=== PATIENT | female | born 1955 | race Hispanic/Latino ===

== ENCOUNTER → 2021-04-10 | Outpatient (CLI) | payer MEDICARE | LOC: MAMMO 12:33 | PROVIDERS: ATTEND Family Medicine | DX: Z12.31 Encounter for screening mammogram for malignant neoplasm of breast (principal); Z13.820 Encounter for screening for osteoporosis | CPT/HCPCS: 77067; 77080 ==

== ENCOUNTER → 2022-05-20 | Outpatient (CLI) | payer MEDICARE | LOC: RAD 08:49 | PROVIDERS: ATTEND Family Medicine | DX: Z12.31 Encounter for screening mammogram for malignant neoplasm of breast (principal) | CPT/HCPCS: 77067 ==

== ENCOUNTER 2023-03-09 18:41 | Inpatient (IN) | payer MEDICARE ==
[~2023-03-09] VITALS: Ht 160 cm; Wt 104.3 kg
[2023-03-09] MEDS ORDERED: SODIUM CHLORIDE 0.9% 1000ML 1,000 ML IV STA (19:08)
[2023-03-09] MEDS ORDERED: ONDANSETRON HCL INJ 2MG/ML 2ML 2 MG/ML VIAL IV PRN (19:15)
[2023-03-09] MEDS ORDERED: DICYCLOMINE HCL 20 MG/2 ML VIAL IM ONE (19:15)
[2023-03-09 20:04] LABS: BASOPHILS # (AUTO) 0.1 (0.0-0.1); BASOPHILS % 0.7 % (0.0-1.0); EOSINOPHILS % 0.3 % (0.0-6.0); HEMATOCRIT 47.9 % (34.2-44.1); HEMOGLOBIN 15.8 g/dL (12.0-16.0); LYMPHOCYTES # (AUTO) 0.9 (1.0-3.2); LYMPHOCYTES % 6.3 % (18.0-39.1); MEAN CORPUSCULAR HEMOGLOBIN 30.7 pg (28-32); MEAN CORPUSCULAR VOLUME 93.2 fL (81-99); MONOCYTES # (AUTO) 0.3 (0.2-0.8); MONOCYTES % 1.8 % (4.4-11.3); NEUTROPHILS # (AUTO) 12.8 (2.1-6.9); NEUTROPHILS % 89.8 % (38.7-80.0); PLATELET COUNT 277 x10e3/uL (140-360); RED BLOOD COUNT 5.14 x10e6/uL (3.6-5.1); RED CELL DISTRIBUTION WIDTH 12.4 % (11.7-14.4); WHITE BLOOD COUNT 14.24 x10e3/uL (4.8-10.8)
[2023-03-09 20:07] LABS: BILIRUBIN,URINE NEGATIVE (NEGATIVE); CLARITY,URINE SL CLOUDY (CLEAR); COLOR,URINE YELLOW (YELLOW); GLUCOSE, URINE 1+ (NEGATIVE); KETONES,URINE 2+ (NEGATIVE); LEUKOCYTE ESTERASE ,URINE NEGATIVE (NEGATIVE); NITRITE,URINE NEGATIVE (NEGATIVE); PH,URINE 7 (5 - 7); PROTEIN,URINE DIPSTICK 1+ (NEGATIVE); URINE UROBILINOGEN 0.2 mg/dL (0.2 - 1)
[2023-03-09 20:18] LABS: BACTERIA,URINE RARE /HPF; EPITHELIAL CELLS,URINE FEW /LPF; RBC,URINE 0-5 /HPF (0-5); WBC,URINE (MAN) 0-5 /HPF (0-5)
[2023-03-09 20:20] LABS: ALBUMIN 4.3 g/dL (3.5-5.0); ANION GAP 20.3 mmol/L (8-16); BILIRUBIN,TOTAL 1.5 mg/dL (0.2-1.2); CALCIUM 9.9 mg/dL (8.4-10.2); CREATININE, SERUM 0.92 mg/dL (0.57-1.11); TOTAL PROTEIN 8.4 g/dL (6.5-8.1)
[2023-03-09 20:21] LABS: POTASSIUM 3.3 mmol/L (3.5-5.1)
[2023-03-09 20:28] LABS: INFLUENZAE A&B ANTIGEN (RAPID) NEGATIVE (NEGATIVE); RESPIRATORY SYNC. VIRUS NEGATIVE (NEGATIVE)
[2023-03-09] MEDS ORDERED: IOPAMIDOL 370 MG/ML 100 ML INFUS..BTL INJ ONE (20:29)
[2023-03-09] MEDS ORDERED: FUROSEMIDE INJ 10 MG/ML 4 ML VIAL IV SCH (22:00)
[2023-03-09] MEDS ORDERED: ASPIRIN 81 MG CHEW TAB PO ONE (22:00)
[2023-03-09 22:05] VITALS: PULSE 108; RESP 22; O2SAT 97
[2023-03-09] MEDS ORDERED: AMLODIPINE-BEN1 EAC5 PO (22:28)
[2023-03-09] MEDS ORDERED: LOSARTAN POTASS25 MG PO (22:28)
[2023-03-09] MEDS ORDERED: METFORMIN HCL500 MG PO (22:28)
[2023-03-09] MEDS ORDERED: VENLAFAXINE HCL75 M2 PO (22:28)
[2023-03-09] MEDS ORDERED: POTASSIUM CHLO10 ME1 PO (22:28)
[2023-03-09] MEDS ORDERED: METOPROLOL TARTRATE 25 MG TAB PO ONE (22:30)
[2023-03-09] MEDS ORDERED: MELATONIN 5 MG TABLET PO PRN (22:45)
[2023-03-09] MEDS ORDERED: METOPROLOL TARTRATE INJ 1 MG/ML VIAL IV ONE (22:45)
[2023-03-09] MEDS ORDERED: FAMOTIDINE 20 MG TAB PO PRN (22:45)
[2023-03-09] MEDS ORDERED: ACETAMINOPHEN 325 MG TAB PO PRN (22:45)
[2023-03-09] MEDS: HYDRALAZINE HCL 20 MG/ML VIAL IV PRN (23:51)
[2023-03-10] MEDS ORDERED: NICARDIPINE 20MG/200ML PREMIX 200 ML IV SCH (01:15)
[2023-03-10] MEDS ORDERED: POTASSIUM CHLORIDE 20 MEQ TAB CR PO STA (02:52)
[2023-03-10] MEDS ORDERED: DOCUSATE SODIUM 100 MG CAP PO PRN (03:00)
[2023-03-10] MEDS ORDERED: ALBUTEROL SULF 0.083% NEB SOLN 3 ML NEB NEB PRN (03:00)
[2023-03-10] MEDS ORDERED: GUAIFENESIN/DEXTROMETHORPHAN LIQD 5 ML UDC PO PRN (03:00)
[2023-03-10] MEDS ORDERED: MAGNESIUM/ALUMINUM/SIMETHICONE 30 ML UDC PO PRN (03:15)
[2023-03-10] MEDS ORDERED: DEXTROSE 50% SYRINGE 50 ML IV PRN (03:15)
[2023-03-10 03:51] LABS: TROPONIN I 0.038 ng/mL (0-0.300)
[2023-03-10 05:29] LABS: AMPHETAMINES SCREEN,URINE NEGATIVE (NEGATIVE); BENZODIAZEPINES SCREEN,URINE NEGATIVE (NEGATIVE); CANNABINOIDS SCREEN,URINE NEGATIVE (NEGATIVE); METHADONE SCREEN, URINE NEGATIVE (NEGATIVE); OPIATES SCREEN,URINE NEGATIVE (NEGATIVE); PHENCYCLIDINE SCREEN,URINE NEGATIVE (NEGATIVE)
[2023-03-10 06:22] LABS: BASOPHILS % 0.2 % (0.0-1.0); HEMATOCRIT 47.9 % (34.2-44.1); HEMOGLOBIN 16.2 g/dL (12.0-16.0); LYMPHOCYTES # (AUTO) 0.8 (1.0-3.2); LYMPHOCYTES % 5.1 % (18.0-39.1); MEAN CORPUSCULAR HEMOGLOBIN 31.2 pg (28-32); MEAN CORPUSCULAR HGB CONC 33.8 g/dL (31-35); MEAN CORPUSCULAR VOLUME 92.3 fL (81-99); MONOCYTES # (AUTO) 0.4 (0.2-0.8); MONOCYTES % 2.7 % (4.4-11.3); NEUTROPHILS # (AUTO) 14.7 (2.1-6.9); NEUTROPHILS % 91.5 % (38.7-80.0); PLATELET COUNT 275 x10e3/uL (140-360); RED BLOOD COUNT 5.19 x10e6/uL (3.6-5.1); RED CELL DISTRIBUTION WIDTH 12.6 % (11.7-14.4); WHITE BLOOD COUNT 16.07 x10e3/uL (4.8-10.8)
[2023-03-10 06:45] LABS: ALBUMIN 4.6 g/dL (3.5-5.0); ALBUMIN/GLOBULIN RATIO 1.1 (0.8-2.0); BILIRUBIN,TOTAL 1.5 mg/dL (0.2-1.2); CREATININE, SERUM 0.94 mg/dL (0.57-1.11); TOTAL PROTEIN 8.9 g/dL (6.5-8.1)
[2023-03-10 06:58] LABS: MAGNESIUM 1.7 MG/DL (1.3-2.1); PHOSPHORUS 2.8 MG/DL (2.3-4.7)
[2023-03-10] MEDS ORDERED: POTASSIUM CHLORIDE 20 MEQ TAB CR PO ONE (07:07)
[2023-03-10] MEDS: INSULIN REGULAR, HUMAN 100 UNIT/1 ML SQ SCH ×4 (07:30→21:00)
[2023-03-10 07:33] LABS: TROPONIN I 0.03 ng/mL (0-0.300)
[2023-03-10 07:37] VITALS: PULSE 96; RESP 18; O2SAT 98
[2023-03-10] MEDS: BENAZEPRIL HCL 10 MG TAB PO SCH (09:00)
[2023-03-10 11:02] LABS: FOLATE 11.1 ng/mL (7.0-15.4)
[2023-03-10] MEDS: CHLORDIAZEPOXIDE HCL 25 MG CAP PO SCH ×3 (11:43→18:40)
[2023-03-10] MEDS: FAMOTIDINE 20 MG TAB PO SCH ×2 (11:43→16:43)
[2023-03-10] MEDS: FOLIC ACID 1 MG TAB PO SCH (11:43)
[2023-03-10] MEDS: THIAMINE HCL 100 MG TAB PO SCH (11:43)
[2023-03-10] MEDS: MULTIVITAMINS/MINERALS TAB PO SCH (11:44)
[2023-03-10] MEDS: AMLODIPINE BESYLATE 10 MG TAB PO SCH (11:44)
[2023-03-10] MEDS ORDERED: CHLORDIAZEPOXIDE HCL 25 MG CAP PO SCH ×2 (14:00→21:00)
[2023-03-10 16:20] VITALS: BP 151/90; PULSE 100; RESP 20; TEMP 98.5; O2SAT 100
[2023-03-10] MEDS: VENLAFAXINE HCL 75 MG CAPCR PO SCH (16:43)
[2023-03-10] MEDS ORDERED: FUROSEMIDE INJ 10 MG/ML 4 ML VIAL IV SCH (17:00)
[2023-03-10 17:35] VITALS: BP 151/90; PULSE 100; RESP 20; TEMP 98.5; O2SAT 100
[2023-03-10] MEDS ORDERED: ATENOLOL50 MG PO (18:53)
[2023-03-10 19:38] LABS: TROPONIN I 0.07 ng/mL (0-0.300)
[2023-03-10 20:00] VITALS: BP 130/60; PULSE 93; RESP 20; TEMP 98.5; O2SAT 99
[2023-03-11] VITALS (9 sets, daily range): BP systolic 121–179; BP diastolic 58–103; PULSE 94–107; RESP 14–20; TEMP 97.8–98.7; O2SAT 97–100
[2023-03-11 05:13] LABS: BASOPHILS # (AUTO) 0.1 (0.0-0.1); BASOPHILS % 0.5 % (0.0-1.0); EOSINOPHILS # (AUTO) 0.1 (0.0-0.4); EOSINOPHILS % 0.5 % (0.0-6.0); HEMOGLOBIN 16.4 g/dL (12.0-16.0); LYMPHOCYTES # (AUTO) 2.2 (1.0-3.2); MEAN CORPUSCULAR HEMOGLOBIN 30.5 pg (28-32); MEAN CORPUSCULAR HGB CONC 32.8 g/dL (31-35); MEAN CORPUSCULAR VOLUME 93.1 fL (81-99); MONOCYTES # (AUTO) 1.6 (0.2-0.8); MONOCYTES % 8.1 % (4.4-11.3); NEUTROPHILS # (AUTO) 15.6 (2.1-6.9); NEUTROPHILS % 79.3 % (38.7-80.0); PLATELET COUNT 283 x10e3/uL (140-360); RED BLOOD COUNT 5.37 x10e6/uL (3.6-5.1); RED CELL DISTRIBUTION WIDTH 12.7 % (11.7-14.4); WHITE BLOOD COUNT 19.65 x10e3/uL (4.8-10.8)
[2023-03-11 05:43] LABS: ALBUMIN 4.1 g/dL (3.5-5.0); ALBUMIN/GLOBULIN RATIO 1.1 (0.8-2.0); BILIRUBIN,TOTAL 1.4 mg/dL (0.2-1.2); CREATININE, SERUM 1.59 mg/dL (0.57-1.11)
[2023-03-11] MEDS: CHLORDIAZEPOXIDE HCL 25 MG CAP PO SCH ×3 (06:02→21:20)
[2023-03-11] MEDS: INSULIN REGULAR, HUMAN 100 UNIT/1 ML SQ SCH ×4 (07:30→21:00)
[2023-03-11] MEDS: BENAZEPRIL HCL 10 MG TAB PO SCH (08:23)
[2023-03-11] MEDS: HYDRALAZINE HCL 20 MG/ML VIAL IV PRN (08:24)
[2023-03-11] MEDS: FOLIC ACID 1 MG TAB PO SCH (08:24)
[2023-03-11] MEDS: MULTIVITAMINS/MINERALS TAB PO SCH (08:24)
[2023-03-11] MEDS: FAMOTIDINE 20 MG TAB PO SCH ×2 (08:24→17:45)
[2023-03-11] MEDS: AMLODIPINE BESYLATE 10 MG TAB PO SCH (08:24)
[2023-03-11] MEDS: THIAMINE HCL 100 MG TAB PO SCH (08:24)
[2023-03-11] MEDS ORDERED: ACETAMINOPHEN 325 MG TAB PO PRN (08:30)
[2023-03-11] MEDS ORDERED: ACETAMINOPHEN 325 MG TAB PO ONE (08:30)
[2023-03-11] MEDS ORDERED: LOSARTAN POTASSIUM 100 MG TAB PO SCH (09:00)
[2023-03-11] MEDS ORDERED: POTASSIUM CHLORIDE 20 MEQ TAB CR PO ONE (09:30)
[2023-03-11 09:40] LABS: LYMPHOCYTES % (MANUAL) 6 % (19-48); MONOCYTES % (MANUAL) 4 % (3.4-9.0); NEUTROPHILS % (MANUAL) 88 % (40-74); REACTIVE LYMPHOCYTES 2
[2023-03-11 09:41] LABS: PLATELET ESTIMATE ADEQUATE; PLATELET MORPHOLOGY COMMENT NORMAL; RBC MORPHOLOGY COMMENT NORMAL
[2023-03-11] MEDS ORDERED: ONDANSETRON HCL 4 MG ORAL DISINTEGRATING TAB PO PRN (09:45)
[2023-03-11] MEDS: VENLAFAXINE HCL 75 MG CAPCR PO SCH (17:45)
[2023-03-12] VITALS (10 sets, daily range): BP systolic 109–142; BP diastolic 70–80; PULSE 83–106; RESP 15–20; TEMP 96.9–98.9; O2SAT 84–100
[2023-03-12 05:45] LABS: BASOPHILS # (AUTO) 0.1 (0.0-0.1); BASOPHILS % 0.9 % (0.0-1.0); EOSINOPHILS # (AUTO) 0.2 (0.0-0.4); EOSINOPHILS % 1.4 % (0.0-6.0); HEMATOCRIT 48.6 % (34.2-44.1); LYMPHOCYTES # (AUTO) 2.2 (1.0-3.2); LYMPHOCYTES % 16.2 % (18.0-39.1); MEAN CORPUSCULAR HEMOGLOBIN 30.9 pg (28-32); MEAN CORPUSCULAR HGB CONC 32.9 g/dL (31-35); MEAN CORPUSCULAR VOLUME 93.8 fL (81-99); MONOCYTES # (AUTO) 1.3 (0.2-0.8); MONOCYTES % 9.9 % (4.4-11.3); NEUTROPHILS # (AUTO) 9.5 (2.1-6.9); PLATELET COUNT 319 x10e3/uL (140-360); RED BLOOD COUNT 5.18 x10e6/uL (3.6-5.1); RED CELL DISTRIBUTION WIDTH 12.7 % (11.7-14.4); WHITE BLOOD COUNT 13.37 x10e3/uL (4.8-10.8)
[2023-03-12 06:47] LABS: ALBUMIN 3.7 g/dL (3.5-5.0); ALBUMIN/GLOBULIN RATIO 1.1 (0.8-2.0); ANION GAP 17.5 mmol/L (8-16); BILIRUBIN,TOTAL 1.3 mg/dL (0.2-1.2); CALCIUM 9.9 mg/dL (8.4-10.2); CREATININE, SERUM 1.85 mg/dL (0.57-1.11); POTASSIUM 3.5 mmol/L (3.5-5.1); TOTAL PROTEIN 7.2 g/dL (6.5-8.1)
[2023-03-12] MEDS: INSULIN REGULAR, HUMAN 100 UNIT/1 ML SQ SCH ×4 (07:23→21:00)
[2023-03-12] MEDS: CHLORDIAZEPOXIDE HCL 25 MG CAP PO SCH ×2 (07:59→21:22)
[2023-03-12] MEDS: FAMOTIDINE 20 MG TAB PO SCH ×2 (07:59→16:40)
[2023-03-12] MEDS: BENAZEPRIL HCL 10 MG TAB PO SCH (07:59)
[2023-03-12] MEDS: THIAMINE HCL 100 MG TAB PO SCH (07:59)
[2023-03-12] MEDS: AMLODIPINE BESYLATE 10 MG TAB PO SCH (07:59)
[2023-03-12] MEDS: MULTIVITAMINS/MINERALS TAB PO SCH (07:59)
[2023-03-12] MEDS: FOLIC ACID 1 MG TAB PO SCH (08:00)
[2023-03-12] MEDS: SODIUM CHLORIDE 0.9% 1000ML 1,000 ML IV SCH ×2 (08:56→18:51)
[2023-03-12] MEDS: VENLAFAXINE HCL 75 MG CAPCR PO SCH (16:40)
[2023-03-12 18:45] LABS: ANION GAP 14.5 mmol/L (8-16); CALCIUM 9.5 mg/dL (8.4-10.2); CREATININE, SERUM 2.15 mg/dL (0.57-1.11); POTASSIUM 3.5 mmol/L (3.5-5.1)
[2023-03-13] VITALS (8 sets, daily range): BP systolic 117–133; BP diastolic 68–81; PULSE 82–95; RESP 18–20; TEMP 98–98.6; O2SAT 97–100
[2023-03-13] MEDS: HEPARIN SOD (PORCINE) 5,000 UNIT/ML VIAL SC SCH ×4 (01:29→21:15)
[2023-03-13] MEDS: INSULIN REGULAR, HUMAN 100 UNIT/1 ML SQ SCH ×4 (07:30→20:59)
[2023-03-13 08:56] LABS: ALBUMIN 3.4 g/dL (3.5-5.0); ALBUMIN/GLOBULIN RATIO 1.1 (0.8-2.0); ANION GAP 13.3 mmol/L (8-16); BILIRUBIN,TOTAL 0.9 mg/dL (0.2-1.2); CALCIUM 9.1 mg/dL (8.4-10.2); CREATININE, SERUM 1.78 mg/dL (0.57-1.11); TOTAL PROTEIN 6.4 g/dL (6.5-8.1)
[2023-03-13] MEDS ORDERED: BENAZEPRIL HCL 10 MG TAB PO SCH (09:00)
[2023-03-13 09:03] LABS: POTASSIUM 3.3 mmol/L (3.5-5.1)
[2023-03-13 09:37] LABS: BASOPHILS # (AUTO) 0.1 (0.0-0.1); EOSINOPHILS # (AUTO) 0.4 (0.0-0.4); EOSINOPHILS % 3.3 % (0.0-6.0); HEMATOCRIT 47.2 % (34.2-44.1); LYMPHOCYTES # (AUTO) 2.3 (1.0-3.2); LYMPHOCYTES % 19.3 % (18.0-39.1); MEAN CORPUSCULAR HEMOGLOBIN 30.9 pg (28-32); MEAN CORPUSCULAR HGB CONC 31.8 g/dL (31-35); MEAN CORPUSCULAR VOLUME 97.1 fL (81-99); MONOCYTES # (AUTO) 1.2 (0.2-0.8); MONOCYTES % 10.6 % (4.4-11.3); NEUTROPHILS # (AUTO) 7.6 (2.1-6.9); NEUTROPHILS % 65.3 % (38.7-80.0); PLATELET COUNT 265 x10e3/uL (140-360); RED BLOOD COUNT 4.86 x10e6/uL (3.6-5.1); RED CELL DISTRIBUTION WIDTH 12.5 % (11.7-14.4); WHITE BLOOD COUNT 11.68 x10e3/uL (4.8-10.8)
[2023-03-13] MEDS ORDERED: POTASSIUM CHLORIDE 20 MEQ TAB CR PO ONE ×2 (10:00→11:00)
[2023-03-13 10:15] LABS: CREATININE,URINE RANDOM 170.53 mg/dL (47-110); TOTAL PROTEIN, URINE 43.6 mg/dL (1-14)
[2023-03-13] MEDS ORDERED: SODIUM CHLORIDE 0.9% 1000ML 1,000 ML IV ONE (10:15)
[2023-03-13] MEDS: FAMOTIDINE 20 MG TAB PO SCH ×2 (10:16→17:43)
[2023-03-13] MEDS: FOLIC ACID 1 MG TAB PO SCH (10:16)
[2023-03-13] MEDS: THIAMINE HCL 100 MG TAB PO SCH (10:16)
[2023-03-13] MEDS: MULTIVITAMINS/MINERALS TAB PO SCH (10:16)
[2023-03-13] MEDS: VENLAFAXINE HCL 75 MG CAPCR PO SCH (17:42)
[2023-03-13] MEDS ORDERED: SODIUM CHLORIDE 0.9% 1000ML 1,000 ML ONE (18:25)
[2023-03-14] VITALS: BP 130/81; PULSE 93; RESP 18; TEMP 97.5; O2SAT 100
[2023-03-14] MEDS: HEPARIN SOD (PORCINE) 5,000 UNIT/ML VIAL SC SCH (05:44)
[2023-03-14 06:47] VITALS: BP 130/81; PULSE 93; RESP 18; TEMP 97.5; O2SAT 100
[2023-03-14 07:21] LABS: BASOPHILS # (AUTO) 0.1 (0.0-0.1); BASOPHILS % 0.8 % (0.0-1.0); EOSINOPHILS # (AUTO) 0.4 (0.0-0.4); EOSINOPHILS % 3.9 % (0.0-6.0); HEMATOCRIT 46.3 % (34.2-44.1); HEMOGLOBIN 14.7 g/dL (12.0-16.0); LYMPHOCYTES # (AUTO) 1.9 (1.0-3.2); MEAN CORPUSCULAR HEMOGLOBIN 31.1 pg (28-32); MEAN CORPUSCULAR HGB CONC 31.7 g/dL (31-35); MEAN CORPUSCULAR VOLUME 97.9 fL (81-99); MONOCYTES # (AUTO) 0.9 (0.2-0.8); MONOCYTES % 9.9 % (4.4-11.3); NEUTROPHILS # (AUTO) 6.2 (2.1-6.9); PLATELET COUNT 241 x10e3/uL (140-360); RED BLOOD COUNT 4.73 x10e6/uL (3.6-5.1); RED CELL DISTRIBUTION WIDTH 12.3 % (11.7-14.4); WHITE BLOOD COUNT 9.53 x10e3/uL (4.8-10.8)
[2023-03-14] MEDS: INSULIN REGULAR, HUMAN 100 UNIT/1 ML SQ SCH (07:30)
[2023-03-14 07:54] LABS: ALBUMIN 3.3 g/dL (3.5-5.0); BILIRUBIN,TOTAL 0.7 mg/dL (0.2-1.2); CALCIUM 9.6 mg/dL (8.4-10.2); CREATININE, SERUM 1.09 mg/dL (0.57-1.11); TOTAL PROTEIN 6.6 g/dL (6.5-8.1)
[2023-03-14 08:00] VITALS: BP 140/90; PULSE 93; RESP 17; TEMP 97.7; O2SAT 100
[2023-03-14 08:30] VITALS: BP 140/90; PULSE 93; RESP 17; TEMP 97.7; O2SAT 100
[2023-03-14] MEDS ORDERED: NIFEDIPINE CR 30 MG TAB PO SCH (09:00)
[2023-03-14] MEDS: THIAMINE HCL 100 MG TAB PO SCH (09:03)
[2023-03-14] MEDS: FAMOTIDINE 20 MG TAB PO SCH (09:03)
[2023-03-14] MEDS: MULTIVITAMINS/MINERALS TAB PO SCH (09:04)
[2023-03-14] MEDS: FOLIC ACID 1 MG TAB PO SCH (09:04)
[2023-03-14 12:01] VITALS: BP 135/77; PULSE 91; RESP 16; TEMP 97.8; O2SAT 100
[2023-03-14] MEDS ORDERED: MULTI-VITAMIN1 EACH PO (12:07)
[2023-03-14] MEDS ORDERED: B-1100 M1 (12:08)
[2023-03-14] MEDS ORDERED: FOLIC ACID0.4 MG PO (12:09)
[2023-03-14] MEDS ORDERED: METOPROLOL SUCC50 MG PO (12:10)
[2023-03-14] MEDS ORDERED: POTASSIUM CHLO10 ME1 PO (12:10)
[2023-03-14] MEDS ORDERED: FUROSEMIDE40 MG PO (12:11)
[2023-03-14 12:59] VITALS: PULSE 92; RESP 18; O2SAT 98
[2023-03-14] MEDS ORDERED: LABETALOL HCL 200 MG TAB PO SCH (14:00)
[2023-03-17 03:10] LABS: CALCIUM 9.7 mg/dL (8.7-10.3)
== END 2023-03-14 13:35 | disposition home health service (06) | DRG 291 ==
LOC: ER 18:47 → ERHOLD 21:57 → MED/SURG 03-10 14:57
PROVIDERS: ADMIT Family Medicine Adult Medicine; ATTEND Family Medicine Adult Medicine
PROC: 5A0955A Assistance with Respiratory Ventilation, Greater than 96 Consecutive Hours, High Flow/Velocity Cannula (ICD-10-PCS; principal; 2023-03-11)
DX: I11.0 Hypertensive heart disease with heart failure (principal); I50.33 Acute on chronic diastolic (congestive) heart failure; J96.01 Acute respiratory failure with hypoxia; I16.1 Hypertensive emergency; Z68.41 Body mass index [BMI] 40.0-44.9, adult; N17.9 Acute kidney failure, unspecified; F10.231 Alcohol dependence with withdrawal delirium; E66.01 Morbid (severe) obesity due to excess calories; E11.9 Type 2 diabetes mellitus without complications; K70.0 Alcoholic fatty liver; Z87.891 Personal history of nicotine dependence; Z98.84 Bariatric surgery status; F41.9 Anxiety disorder, unspecified; F32.A Depression, unspecified; Z91.148 Patient's other noncompliance with medication regimen for other reason; A08.4 Viral intestinal infection, unspecified; N14.11 Contrast-induced nephropathy; T50.8X5A Adverse effect of diagnostic agents, initial encounter; Y92.230 Patient room in hospital as the place of occurrence of the external cause; Z11.52 Encounter for screening for COVID-19; Z79.899 Other long term (current) drug therapy
CPT/HCPCS: 36415; 70450; 71045; 71260; 74177; 80048; 80053; 80307; 81001; 82140; 82550; 82570; 82607; 82746; 82948; 83036; 83605; 83690; 83735; 83880; 83970; 84100; 84156; 84443; 84484; 84550; 85025; 87040; 87400; 87420; 93005; 93306; 94760; 94799; 99285; J1644; J1940; J2405; J3411; J7030; Q9967; U0002